=== PATIENT | female | born 1980 | race Caucasian/White ===

== ENCOUNTER 2022-08-10 10:22 | Emergency (ER) | payer BC, OTHER ==
[2022-08-10] MEDS ORDERED: IBUPROFEN 600 MG TABLET (FP) PO ONE ×2 (10:32→10:42)
[2022-08-10 10:44] VITALS: BP 111/72; PULSE 85; RESP 18; TEMP 98.2; BMI 25.7
== END 2022-08-10 10:59 | disposition home or self-care (01) ==
LOC: FER 10:22
DX: M79.661 Pain in right lower leg (principal); S86.912A Strain of unspecified muscle(s) and tendon(s) at lower leg level, left leg, initial encounter; X58.XXXA Exposure to other specified factors, initial encounter; Y93.66 Activity, soccer
CPT/HCPCS: 99283-25